=== PATIENT | female | born 1980 | race Caucasian/White ===

== ENCOUNTER → 2016-07-01 | Outpatient (CLI) | payer BC | LOC: FIMAGING 09:03 | PROVIDERS: ATTEND Obstetrics & Gynecology | DX: O98.513 Other viral diseases complicating pregnancy, third trimester (principal); O34.219 Maternal care for unspecified type scar from previous cesarean delivery; Z3A.31 31 weeks gestation of pregnancy ==

== ENCOUNTER 2016-08-11 17:53 | Inpatient (IN) | payer BC ==
--- NOTE | 2016-08-11 18:54 | PDGENHP ---
History and Physical - Chief Complaint 36 y.o. at 37 2/7 weeks with SROM at 1000 clear fluid - History of Present Illness 36 y.o. female at 37 2/7 weeks with SROM at 1000 with clear fluid. No UCs or VB. Vertex by US. History Information - Allergies/Home Medication List Allergies/Adverse Reactions: No Known Allergies Allergy (Verified 08/04/11 18:45) I have personally reviewed and updated: family history, medical history, social history, surgical history - Past Medical History no pertinent PMH - Surgical History Additional surgical history: Previous C/S, bunion removal - Family History Positive for: cancer Additional family history: Mixed connective tissue disorder- mother, Thyroid CA with removal- mother, Breast CA- MGM, Lung CA- PGF - Social History Smoking Status: Never smoked Alcohol Use: None Drug Use: None Review of Systems ROS: 10pt was reviewed & negative except for what was stated in HPI & below Constitutional: Reports: no symptoms EENMT: Reports: no symptoms Cardiac: Reports: no symptoms Respiratory: Reports: no symptoms Gastrointestinal: Reports: no symptoms Genitourinary: Reports: no symptoms Muscolosketal: Reports: no symptoms Skin: Reports: no symptoms Neurological: Reports: no symptoms Hematologic/Lymphatic: Reports: no symptoms Immunologic/Allergy: Reports: no symptoms Physical Exam Constitutional: no apparent distress Ears, Nose, Mouth, Throat: hearing normal, ears appear normal Cardiovascular: regular rate and rhythym Respiratory: no respiratory distress Gastrointestinal: soft, non-tender abdomen Genitourinary: no bladder fullness Skin: warm, normal color Musculoskeletal: full muscle strength Neurologic: AAOx3 Psychiatric: interacting appropriately, not anxious Assessment & Plan Assessment: 36 y.o. at 37 2/7 weeks with SROM of clear fluid at 1000 VSS- afebrile. +FHTs. No UCs or VB. GBS negative. Plan: Admit to L&D. VS and EFM per protocol
[2016-08-11] MEDS ORDERED: LIDOCAINE 1% 30 ML SDV SC PRN (19:23)
[2016-08-11] MEDS ORDERED: TERBUTALINE SULFATE 1 MG/ML VIAL IV PRN (19:23)
[2016-08-11] MEDS ORDERED: EPSOM SALT 454 GM TP PRN (19:23)
[2016-08-11] MEDS ORDERED: LR 1,000 ML IV PRN (19:23)
[2016-08-11] MEDS ORDERED: OXYTOCIN/RINGERS LACTATE 1,000 ML IV PRN (19:23)
[2016-08-11] MEDS ORDERED: OLIVE OIL 118 ML BTL MISC PRN (19:23)
--- NOTE | 2016-08-11 19:27 | OBPROG ---
OBG Progress Note Assessment/Plan: Assessment: 36 y/o A1 female at 37+3 weeks EGA w/ PROM Plan: 1) Hx prior C/S, desires . Hx one successful in the past. Reviewed all risks to include 1% risk of uterine rupture, bleeding, infection, blood transfusion, damage to surrounding structures and organs. She agrees to proceed. 2) Labor: CX 2-3cm, membranes stripped, forebag palpated after membrane stripping and AROM completed with no complications, pt agreed and tolerated it well. 3) status reassuring 4) GBS neg 5) Desires PATRICIA in labor 08/11/16 19:25 Subjective: Pt feeling mild contractions for one hour, +ROM around 10am. No bleeding. Desires . - SVE Dilation (cm): 2 Effacement (%): 80 Station: -2 Current Contraction Pattern: Irregular FHR (bpm): 130 FHR Pattern Variability: Moderate FHR Category: 1 Membranes: AROM (of forebag) Amniotic Fluid Color: Clear ICD10 Worksheet Patient Problems: Problems Problem Status Onset Labor established Acute
[2016-08-11] MEDS ORDERED: OLIVE OIL 118 ML BTL ONE (20:18)
[2016-08-11] MEDS ORDERED: AMMONIA AROMATIC 1 EACH AMP IH ONE (20:18)
[2016-08-11] MEDS ORDERED: LIDOCAINE 1% 30 ML SDV ONE (20:18)
[2016-08-11 20:19] LABS: % IMMATURE GRANULYOCYTES 0.5 % (0.0-1.1); ABSOLUTE IMMATURE GRANULOCYTES 0.05 10^3/uL (0.00-0.10); ADD DIFF? NO; ADD MORPH? NO; ADD SCAN? NO; ATYPICAL LYMPHOCYTE FLAG 0 (0-99); FRAGMENT RBC FLAG 0 (0-99); HEMATOCRIT 41.3 % (38.0-47.0); LEFT SHIFT FLG 0 (0-99); LIPEMIA HEMOLYSIS FLAG 90 (0-99); MEAN CELL HEMOGLOBIN 29.3 pg (27.9-34.1); MEAN CELL HEMOGLOBIN CONCENTR. 33.9 g/dL (32.4-36.7); MEAN CELL VOLUME 86.4 fL (81.5-99.8); MEAN PLATELET VOLUME 11.5 fL (8.7-11.7); PLATELET CLUMPS FLAG 0 (0-99); PLATELET COUNT 221 10^3/uL (150-400); RED BLOOD CELL COUNT 4.78 10^6/uL (4.18-5.33); RED CELL DISTRIBUTION WIDTH 13.9 % (11.5-15.2)
[2016-08-11] MEDS ORDERED: MISOPROSTOL 200 MCG TAB ONE (20:19)
[2016-08-11] MEDS ORDERED: OXYTOCIN 10 UNIT/ML VIAL ONE (20:19)
[2016-08-11] MEDS ORDERED: TERBUTALINE SULFATE 1 MG/ML VIAL ONE (20:19)
--- NOTE | 2016-08-11 21:38 | OBPROG ---
OBG Progress Note Assessment/Plan: Assessment: 36 y/o A1 female at 37+3 weeks EGA w/ PROM Plan: 1) Hx prior C/S, desires . 2) Labor: CX /-. Contractions have increased in frequency and intensity. I think she will continue to progress well. 3) status reassuring 4) GBS neg 5) Desires PATRICIA - anesthesia already consulted for PATRICIA. 08/11/16 21:37 Subjective: Pt feeling more uncomfortable w/ her contractions, desires to be checked. Objective: 08/11/16 19:43 Patient ABO/Rh O POSITIVE 08/11/16 19:43 - SVE Dilation (cm): 3 Effacement (%): 90 Station: -1 Current Contraction Pattern: Regular FHR (bpm): 140 FHR Pattern Variability: Moderate FHR Category: 1 Amniotic Fluid Color: Clear ICD10 Worksheet Patient Problems: Problems Problem Status Onset Labor established Acute
[2016-08-11] MEDS ORDERED: LIDOCAINE 2% 100 MG/5 ML SYR ONE (21:57)
[2016-08-11] MEDS ORDERED: fentaNYL 2MCG/ML/BUP 0.1% RTU 100 ML BAG EP ONE (22:25)
[2016-08-11] MEDS ORDERED: ONDANSETRON 4 MG/2 ML VIAL IVP PRN (22:35)
[2016-08-11] MEDS ORDERED: LR 500 ML IV SCH (23:00)
[2016-08-11] MEDS ORDERED: fentaNYL 2MCG/ML/BUP 0.1% RTU 100 ML EP SCH (23:00)
--- NOTE | 2016-08-12 03:21 | OBPROG ---
OBG Progress Note Assessment/Plan: Assessment: 36 y/o A1 female at 37+3 weeks EGA w/ PROM Plan: 1) Hx prior C/S, desires . 2) Labor: Still CX /. Anticipate . 3) status reassuring 4) GBS neg 5) PATRICIA working well 08/11/16 4829 Subjective: No complaints. Objective: 08/11/16 19:43 Patient ABO/Rh O POSITIVE 08/11/16 19:43 - SVE Dilation (cm): 3 Effacement (%): 90 Station: -1 Current Contraction Pattern: Regular FHR (bpm): 150 FHR Pattern Variability: Moderate FHR Category: 1 ICD10 Worksheet Patient Problems: Problems Problem Status Onset Labor established Acute
--- NOTE | 2016-08-12 03:25 | OBPROC ---
- Labor and Delivery Onset of Contractions Date: 08/11/16 Onset of Contractions Time: :57 Onset of Contractions Type: Spontaneous Rupture of Membranes Date: 08/11/16 Rupture of Membranes Time: 10:00 Rupture of Membranes Type: Spontaneous Amniotic Fluid Color: Clear Dilation Complete Time: 02:45 Delivery Type: Spontaneous Placenta Delivery Date: 08/12/16 Placenta Delivery Time: 03:08 Episiotomy/Laceration: 2nd Degree (compound right arm, posterior.) Repair: 2-0, Vicryl EBL: 250 cc Complications: Other (Specify) (compound right arm, posterior) - Medications Labor Augmentation/Induction Meds Used: None Anesthesia: Epidural - Info Infant A Delivery Date: 08/12/16 Delivery Time: :57 Sex of Infant: Female Score (1 Min): 8 Score (5 Min): 9 (Patient pushed for about 3-4 contractions, delivering a female infant in LEO position with compound right posterior arm. Baby placed on maternal abdomen, delayed cord clamping x 2 minutes. Small 2nd degree midline repair completed, then cord clamped x 2 and cut. Cord blood obtained, placenta delivered easily and intact. Uterus massaged, pitocin administered, and mother and baby in stable and good condition.)
[2016-08-12] MEDS ORDERED: SIMETHICONE 80 MG TAB CHEW PO PRN (03:26)
[2016-08-12] MEDS ORDERED: HYDROCORTISONE 0.5% CREAM TP PRN (03:26)
[2016-08-12] MEDS ORDERED: HYDROCODONE/APAP 5/325 TAB PO PRN (03:26)
[2016-08-12] MEDS: IBUPROFEN 600 MG TAB PO PRN ×4 (03:28→22:37)
[2016-08-12] MEDS: ACETAMINOPHEN 325 MG TAB PO PRN ×3 (08:31→19:27)
[2016-08-12] MEDS: DOCUSATE SODIUM 100 MG CAP PO PRN ×2 (08:31→19:28)
[2016-08-13] MEDS: IBUPROFEN 600 MG TAB PO PRN (07:26)
[2016-08-13] MEDS: DOCUSATE SODIUM 100 MG CAP PO PRN (07:27)
[2016-08-13 08:18] VITALS: BP 104/66; PULSE 62; RESP 16; TEMP 97.5; O2SAT 96
--- NOTE | 2016-08-13 08:56 | OBPROG ---
OBG Progress Note Assessment/Plan: Assessment: 36 y/o A1 female PPD#1 s/p - doing well, ready for discharge Plan: Discharge home RX motrin for pain F/U in 6 weeks or sooner prn Bleeding/pain/fever precautions 08/13/16 08:55 Subjective: Pt has no complaints, feeling well. Lochia minimal, breast feeding going well. Objective: 08/11/16 19:43 Patient ABO/Rh O POSITIVE 08/11/16 19:43 Temp Pulse Resp BP Pulse Ox 36.4 C 62 16 104/66 96 08/13/16 08:18 08/13/16 08:18 08/13/16 08:18 08/13/16 08:18 08/13/16 08:18 Uterine Position/Fundal Height: Umbilicus -2 Uterine Tone: Firm ICD10 Worksheet Patient Problems: Problems Problem Status Onset Labor established Acute
== END 2016-08-13 13:40 | disposition home or self-care (01) | DRG 775 ==
LOC: FLD 17:53 → FOB 08-12 05:20
PROVIDERS: ADMIT Obstetrics & Gynecology; ATTEND Obstetrics & Gynecology
DX: O70.1 Second degree perineal laceration during delivery (principal); O34.219 Maternal care for unspecified type scar from previous cesarean delivery; O64.8XX0 Obstructed labor due to other malposition and malpresentation, not applicable or unspecified; Z3A.37 37 weeks gestation of pregnancy; Z37.0 Single live birth
CPT/HCPCS: J2001; J2590; J3105